=== PATIENT | female | born 1990 | race Caucasian/White ===

== ENCOUNTER 2020-05-12 15:33 | Emergency (ER) | payer OTHER, SELFPAY ==
[2020-05-12 15:49] VITALS: BP 157/97; PULSE 73; RESP 16; TEMP 36.6; O2SAT 97; BMI 13.0
--- NOTE | 2020-05-12 16:44 | DI.RAD.S_ITS ---
PROCEDURE: XR HIP W PEL IF DONE LT 2V INDICATIONS: hip pain TECHNIQUE: AP pelvis with lateral view(s) of the left hip(s). COMPARISON: None. FINDINGS: Bones: No fracture. Hip joint spaces appear grossly preserved bilaterally. There is degenerative sclerosis and spurring at the pubis symphysis. Soft tissues: The visualized bowel gas pattern is normal. No suspicious soft tissue calcifications. 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 Unremarkable appearance of both hip joints. If the patient's pain or other symptoms persist, consider further evaluation with MRI Dictated by: Arden Renee M.D. on 05/12/2020 at 17:09 Approved by: Arden Renee M.D. on 05/12/2020 at 17:11
[2020-05-12] MEDS: CYCLOBENZAPRINE 10 MG TABLET PO (17:20)
[2020-05-12] MEDS: LIDOCAINE PATCH 1 EACH ADH..PATCH TOP (17:20)
[2020-05-12] MEDS: KETOROLAC 60 MG/2 ML VIAL 30 MG IM (17:21)
--- NOTE | 2020-05-12 17:37 | PC.NURSE ---
Pt c/o left sacral pain. Lidocaine patch applied to area.
[2020-05-12 18:39] VITALS: BP 155/91; PULSE 88; RESP 15; TEMP 36.9; O2SAT 98
--- NOTE | 2020-05-12 20:32 | ED_ITS ---
HPI - Extremity Problem <VINCE Schaefer - Last Filed: 05/12/20 20:37> General Chief complaint: Extremity Problem,Nontraumatic Stated complaint: LEFT HIP ISSUES Time Seen by Provider: 05/12/20 16:02 Source: patient Mode of arrival: Ambulatory Limitations: no limitations History of Present Illness HPI Narrative: The patient is a 30-year-old female nonsmoker with history of hip pain who presents with a chief complaint of left-sided hip pain. She states that this is an ongoing for a long time on the left side of her lower back. This is been ongoing since she delivered. On several days with no known injury. She has done physical therapy for this in the past and does not have a primary care provider in the area. She denies any falls or trauma she has had chronic hip pain in the past. She states is worse by motion. Related Data Previous Rx's Medication Instructions Recorded cyclobenzaprine 10 mg PO TID PRN #20 tab 05/12/20 diclofenac sodium [Voltaren] 2 gram TOP QID PRN #50 gram 05/12/20 ketorolac 10 mg PO TID PRN #14 tab 05/12/20 lidocaine 1 patch TOP DAILY PRN #15 each 05/12/20 Allergies Allergy/AdvReac Type Severity Reaction Status Date / Time Penicillins Allergy Mild Rash Verified 05/12/20 15:54 Review of Systems <MAHAMED Schaefer - Last Filed: 05/12/20 20:37> Review of Systems Narrative: GENERAL: Denies chills, fatigue, malaise, fever, sweats. HEENT: Denies sinus pain, ear pain, sore throat, difficulty swallowing, dizziness. RESPIRATORY: Denies dyspnea, cough, wheezing, hemoptysis, sputum. CARDIOVASCULAR: Denies chest pain, palpitations, orthopnea, edema, GASTROINTESTINAL: Denies nausea, vomiting, abdominal pain, diarrhea, constipation, melena. : Denies dysuria, frequency, incontinence, hematuria, urinary retention. MUSCULOSKELETAL: See HPI SKIN: Denies rash, skin lesions, or other NEUROLOGIC: Denies weakness, headache, numbness, change in speech, confusion, seizures, incoordination. PSYCHIATRIC: No concerning psychosocial issues. 12 point review of systems is negative except for those stated above Patient History <VINCE Schaefer - Last Filed: 05/12/20 20:37> Social History Smoking Status: Never smoker Smoking Status: Never smoker alcohol intake frequency: 0-2 drinks per day Substance Use Type: does not use Exam <VINCE Schaefer - Last Filed: 05/12/20 20:37> Narrative Exam Narrative: GENERAL: This is a well-nourished, well-developed patient, in mild distress. HEAD: Atraumatic. Normocephalic. No temporal or scalp tenderness. EYES: Pupils equal round and reactive. Extraocular motions intact. No scleral icterus. No injection or drainage. ENT: Nose without bleeding, purulent drainage or septal hematoma. Wearing a mask. Airway patent. NECK: Trachea midline. No JVD or lymphadenopathy. Supple, nontender, no meningeal signs. CARDIOVASCULAR: Regular rate and rhythm without murmurs, gallops, or rubs. RESPIRATORY: Clear to auscultation. Breath sounds equal bilaterally. No wheezes, rales, or rhonchi. No cough. No increased respiratory effort. No accessory muscle use. EXTREMITIES: No clubbing, cyanosis, or edema. No joint tenderness, effusion, or edema noted. BACK: Midline CT and L-spine are nontender with no palpable deformity or crepitance e. pain to palpation left hip, generalized, pain to left lumbar paraspinal muscle palpation NEURO: AOx3. SKIN: No rash or erythema on visible skin. No laceration abrasion or rash noted. Initial Vital Signs Initial Vital Signs: Vital Signs Temperature 97.9 F 05/12/20 15:49 Pulse Rate 73 05/12/20 15:49 Respiratory Rate 16 05/12/20 15:49 Blood Pressure 157/97 H 05/12/20 15:49 Pulse Oximetry 97 05/12/20 15:49 <Kendra Carvajal MD - Last Filed: 05/20/20 00:00> Initial Vital Signs Initial Vital Signs: Vital Signs Temperature 97.9 F 05/12/20 15:49 Pulse Rate 73 05/12/20 15:49 Respiratory Rate 16 05/12/20 15:49 Blood Pressure 157/97 H 05/12/20 15:49 Pulse Oximetry 97 05/12/20 15:49 Scores <VINCE Schaefer - Last Filed: 05/12/20 20:37> GCS [place] coma scale eye opening: Spontaneous [place] coma scale verbal response: Orientated Tariq coma scale motor response: Obey commands Tariq coma scale total score: 15 Course <VINCE Schaefer - Last Filed: 05/12/20 20:37> Orders Ordered: Discontinued Medications Cyclobenzaprine HCl (Flexeril) 10 mg PO NOW ONE Stop: 05/12/20 16:45 Last Admin: 05/12/20 17:20 Dose: 10 mg Documented by: CORRIE Ketorolac Tromethamine (Toradol) 30 mg IM NOW ONE Stop: 05/12/20 16:45 Last Admin: 05/12/20 17:21 Dose: 30 mg Documented by: CORRIE Lidocaine (Lidoderm) 1 each TOP NOW ONE Stop: 05/12/20 16:45 Last Admin: 05/12/20 17:20 Dose: 1 each Documented by: CORRIE Vital Signs Vital signs: Vital Signs - 8 hr 05/12/20 15:49 05/12/20 18:39 Temperature 97.9 F 98.5 F Pulse Rate 73 88 Respiratory Rate 16 15 Blood Pressure 157/97 H 155/91 H Pulse Oximetry 97 98 <Kendra Carvajal MD - Last Filed: 05/20/20 00:00> Orders Ordered: Discontinued Medications Cyclobenzaprine HCl (Flexeril) 10 mg PO NOW ONE Stop: 05/12/20 16:45 Last Admin: 05/12/20 17:20 Dose: 10 mg Documented by: CORRIE Ketorolac Tromethamine (Toradol) 30 mg IM NOW ONE Stop: 05/12/20 16:45 Last Admin: 05/12/20 17:21 Dose: 30 mg Documented by: CORRIE Lidocaine (Lidoderm) 1 each TOP NOW ONE Stop: 05/12/20 16:45 Last Admin: 05/12/20 17:20 Dose: 1 each Documented by: CORRIE Vital Signs Vital signs: Vital Signs - 8 hr 05/12/20 15:49 05/12/20 18:39 Temperature 97.9 F 98.5 F Pulse Rate 73 88 Respiratory Rate 16 15 Blood Pressure 157/97 H 155/91 H Pulse Oximetry 97 98 MDM - Extremity (Nontraumatic) <VINCE Schaefer - Last Filed: 05/12/20 20:37> Imaging Data Hip x-ray: Radiologist's Impression: [address] [place] [id number] XRay Report Signed Patient: Cecile Agarwal [facility]#: [id number] : 1990Acct:[id number] Age/Sex: 30 / FDate of Service: 05/12/20 Loc: ED Accession Number: [id number] Procedure: XR hip w pel if done LT 2V Ordering Provider: Katy Pringle PROCEDURE: XR HIP W PEL IF DONE LT 2V INDICATIONS: hip pain TECHNIQUE: AP pelvis with lateral view(s) of the left hip(s). COMPARISON: None. FINDINGS: Bones: No fracture. Hip joint spaces appear grossly preserved bilaterally. There is degenerative sclerosis and spurring at the pubis symphysis. Soft tissues: The visualized bowel gas pattern is normal. No suspicious soft tissue calcifications. 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 Unremarkable appearance of both hip joints. If the patient's pain or other s ymptoms persist, consider further evaluation with MRI Dictated by: Arden Renee M.D. on 05/12/2020 at 17:09 Approved by: Arden Renee M.D. on 05/12/2020 at 17:11 [facility] Narrative Medical decision making narrative: The patient is a 30-year-old female who presents with a chief complaint of left-sided hip pain. History is no acute findings, though she is noted to have degenerative changes at the pubis symphysis, but this is not where her pain is. I did discuss these with the patient. She feels slightly improved after the above-stated therapies, does not want anything further and declines stronger pain medications repeatedly. I encouraged her to follow up with primary care provider in the next few days, as she may consider physical therapy and/or massage etcetera in the future. Discussed going back to the ER for any acute concerns. Patient has no questions or concerns upon discharge and states understanding return precautions as well as follow-up care. Discharge Plan Departure Patient Disposition: Home Clinical Impression: Acute pain of left hip Discharge Date/Time: 05/12/20 18:55 Instructions: Help for Hip Pain, DI for Muscle Strain, How To Perform RICE (Rest, Ice, Compress, Elevate), DI for Hip Pain Activity Restrictions/Additional Instructions: Thank you for trusting us with your care today. As I discussed, your x-ray shows no acute fracture. This does not rule out a soft tissue injury such as a ligament or tendon injury. It is important that you follow up with primary care provider, especially if worsening or no improvement. There can be fractures that did not show up on initial x-ray. I have given you contact information to the [facility] health resource manager forester, who can help you identify new primary care provider in the area. I suggest follow up with primary care provider, who can help refer you to adjunctive treatments like massage, physical therapy etcetera I sent for prescriptions to [facility]. Please remember that any medication that you take can be transmitted in breast milk. I have given you a prescription of Toradol. This is an NSAID. Do not combine it with other NSAIDs such as Aleve or ibuprofen. I suggest taking it with some food, as it can irritate your stomach. As discussed, the cyclobenzaprine can be sedating. Please do not take and drive or take it with any thing else sedating. Please come back to the emergency department for any acute concerns. Prescriptions: New lidocaine 5 % adhesive patch,medicated 1 patch TOP DAILY PRN (Reason: pain ) Qty: 15 RF: 0 ketorolac 10 mg tablet 10 mg PO TID PRN (Reason: pain) Qty: 14 RF: 0 cyclobenzaprine 10 mg tablet 10 mg PO TID PRN (Reason: muscle spasm) Qty: 20 RF: 0 diclofenac sodium [Voltaren] 1 % gel 2 gram TOP QID PRN (Reason: pain ) Qty: 50 RF: 0 Referrals: [facility] [Outside] <Kendra Carvajal MD - Last Filed: 05/20/20 00:00> [facility] Juany[facility] Attestation: I was immediately available in the department for consultation throughout this patient's visit. I agree with documentation as above. Kendra Carvajal MD
== END 2020-05-12 18:55 | disposition home or self-care (01) ==
PROVIDERS: Emergency Provider Nurse Practitioner Family
DX: M25.552 Pain in left hip (principal)
CPT/HCPCS: 73502; 96372; 99283; 99284; J1885